=== PATIENT | male | born 1960 | race Hispanic/Latino ===

== ENCOUNTER 2025-03-13 23:41 | Emergency (ER) | payer OTHER, SELFPAY ==
[2025-03-13 23:52] VITALS: BP 181/102
--- NOTE | 2025-03-14 00:42 | ED.GENMED ---
History of Present Illness
General
Chief Complaint: Blood Pressure Problem
Source: patient and family ( at bedside)
Time Seen by Provider: 03/14/25 00:25
Nursing documentation reviewed up to this point in time: agreed with
History of Present Illness
History of Present Illness:
This is a 64-year-old gentleman with longstanding history of hypertension, maintained on metoprolol succinate 50 mg daily, lisinopril 40 mg daily. Last visit with his PCP was approximately 1 year ago.
He states his blood pressure generally runs 140s systolic.
He complains of elevated blood pressure since this morning with systolic blood pressure in the 180s. He did note mild headache this morning which has since resolved.
was concerned as they were vacationing in [place] 1 month ago and patient began to not feel well while on the airplane traveling to [place] and he proceeded to pass out. Was evaluated by flight attendants and was found to be okay. He had
similar episode a prodrome of not feeling well and then passed out while staying in the hotel room. Evaluated by physician at the hotel room and was noted to be hypotensive with blood pressure 80/60. Was given Reglan, aspirin. No recurrent
symptoms since then. They returned home February 25.
Other than metoprolol and lisinopril his only other daily medication is Lexapro 10 mg.
He denies chest pain or palpitations. No abdominal pain. Appetite has been good. No change in weight. No leg pain or swelling.
Current BP 151/98.
Past History
Past History
ED Past Medical History: HTN and Psychiatric (Anxiety)
ED Past Surgical History: None
Social History
Tobacco: Non-smoker
Alcohol: Occasional
Drug: None
Personal:
Living: with family
Employment: Employed
Family History
Family History: Other (Noncontributory)
Phy Exam
Physical Exam
Physical Exam:
GENERAL: 64-year-old gentleman appears his stated age, awake and alert, pleasant, appears in no acute distress. is accompanying.
EYE: pupils equal and reactive. anicteric
NECK: Supple, nontender, no meningismus, no significant adenopathy.
ENT: oral mucosa is moist. No rhinorrhea.
CARDIAC: Regular rate and rhythm. no murmur.
LUNGS: Clear breath sounds bilaterally, no acute respiratory distress, no wheezes/rales/rhonchi
ABDOMEN: Soft, nondistended, without focal tenderness, no r/g, no cvat. normoactive BS.
NEUROLOGICAL: Alert and oriented x3, no focal neuro deficits. Gait is marcial and steady.
SKIN: Warm and dry, normal color, skin intact. No rash.
MUSCULOSKELETAL: No C/C/E. peripheral pulses are full and equal b/l. No palpable tenderness.
PSYCH: Normal and appropriate interaction.
Course
Orders/Labs/Results
Orders:
Orders
03/13/25 23:56
EKG [Electrocardiogram (*1)] Urgent
Reason for Study: Hypertension, Benign
EKG- Treatment ONCE
03/14/25 01:00
Complete Blood Count/With Diff Urgent
Comprehensive Metabolic Panel Urgent
Urinalysis Urgent
Date Specimen was Collected: 03/14/25
Time Specimen was Collected: 00:57
Urine Microscopic Urgent
Date Specimen was Collected: 03/14/25
Time Specimen was Collected: 00:57
03/14/25 01:58
Orthostatic VS- Treatment ONCE
03/14/25 02:15
Pantoprazole [Protonix] 40 mg PO NOW STA
Abnormal Lab Results
03/14/25
01:00
RBC 4.36 L 10^6/uL
(4.70-6.10)
Hgb 10.2 L g/dL
(13.0-18.0)
Hct 32.5 L %
(39.0-52.0)
MCV 74.5 L fL
(80.0-94.0)
MCH 23.4 L pg
(27.0-31.0)
MCHC 31.4 L g/dL
(33.0-37.0)
RDW 15.8 H %
(11.5-14.5)
Plt Count 467 H 10^3/uL
(130-400)
Absolute Monos (auto) 0.9 H 10^3/uL
(0.1-0.6)
Monocytes % 11.2 H %
(1.7-9.3)
Glucose 100 H mg/dl
(70-99)
Ur Leukocyte Esterase 1+ A
(Negative)
Urine Albumin 2+ A
(Neg - Trace)
03/14/25 01:00
03/14/25 01:00
Vital Signs
Initial and Last Documented VS:
Initial Vital Signs
Temp Pulse Resp BP Pulse Ox
98.4 F 78 20 181/102 99
03/13/25 23:52 03/13/25 23:52 03/13/25 23:52 03/13/25 23:52 03/13/25 23:52
Last Documented Vital Signs
Temp Pulse Resp BP Pulse Ox
98.4 F 71 16 163/96 98
03/13/25 23:52 03/14/25 01:00 03/14/25 01:00 03/14/25 01:00 03/14/25 01:00
MDM/Problems Addressed
Differential Diagnosis Includes:
Patient with longstanding history of hypertension presents with accelerated hypertension. Reports mild headache earlier this morning which has since resolved.
Overall exam is benign.
History of syncopal episode times two 1 month ago while vacationing in [place]. Syncope preceded by prodrome of not feeling well accompanied with diaphoresis, nausea. Unclear if this was GI in nature, vasovagal episode versus bradycardia
arrhythmia. He has had no recurrent episodes but ultimately would recommend follow-up with cardiology.
Overdue for follow-up with PCP as well.
Blood pressure has improved 151/98 currently.
EKG is unremarkable and unchanged from previous 2018.
Will check labs, assess for potential end-organ damage.
No indication for imaging at this time.
*Pulse Oximetry
Patient hypoxic: no
*EKG
Interpreted by ED Provider?: Yes
Interpretation: normal
Comparison EKG: no changes (Unchanged from previous 2018)
Rate: normal
Rhythm: sinus
[place]: normal axis
Interval: normal interval
QRS Pattern: normal QRS
Ischemia: no ischemia
*[employer] Interpretation
Rate: normal
Interpretation: normal
Rhythm: sinus
*Critical Care Note
Total Time (30-74mins, 75-104mins- exclusive of procedures): Not Applicable
Update Note
Update Note:
02:15
Systolic blood pressure ranging 130-150 over 80s to 100.
Labs reveal mild anemia with hemoglobin of 10.2. Mild microcytic indices. All new compared to previous labs 2018.
Chemistries are unremarkable.
Patient reports undergoing unremarkable routine colonoscopy December of this year.
He denies abdominal pain, denies black or tarry stools, no nausea nor indigestion.
Rectal exam reveals scant brown stool within the vault that is weakly heme positive.
Concern for potential occult upper GI bleed.
Orthostatic vital signs are negative.
Will discharge to home with 30-day course of Protonix.
Recommend prompt follow-up with PCP, prompt follow-up with stuntman.
Recommend cardiology evaluation as well.
Continue current antihypertensive medications.
Strict return precautions discussed.
ED Attending Note
-
Portions of this chart may have been created with voice recognition software.� Occasional wrong word or��sound alike� substitutions may have occurred due to the inherent limitations of voice recognition software.
Discharge Plan
Departure
Patient Disposition: Home (Routine Discharge)
Date of Disposition: 03/14/25
Time of Disposition: 02:19
Patient with high blood pressure during this ER visit?: No
Condition: Good
Discharge Problem:
Accelerated essential hypertension, Hypochromic microcytic anemia, Heme positive stool
Prescriptions:
New
pantoprazole [Protonix] 40 mg tablet,delayed release (DR/EC)
40 mg PO DAILY Qty: 30 0RF
No Action
lisinopril 40 MG tablet
40 mg PO DAILY
metoprolol succinate 100 MG tablet extended release 24 hr
100 mg PO
Referrals:
Travis Pozo MD [Non-Admitting Privileges] - Call in 1-3 days for appt
UNKNOWN - PT DOES,NOT KNOW [Family Provider] -
Lio Mendoza, DO [Active] - Call in 1-3 days for appt
Activity Restrictions/Additional Instructions:
Continue current medications.
Call your family doctor this week for follow-up as well as follow-up with your stuntman.
Due to episodes of passing out last month, we recommend follow-up with cardiology as well.
Interventions
Interventions:
*Risk Screen - Suicide Last Done: 03/13/25 23:52
*General Assessment Last Done: 03/13/25 23:52
*Neglect/Abuse Screening Last Done: 03/13/25 23:52
*ED COVID-19 Vaccine History Last Done: 03/14/25 00:57
ED- Cardiac Assessment Last Done: 03/14/25 00:57
ED- Neurological Assessment Last Done: 03/14/25 00:57
ED- Pulmonary Assessment Last Done: 03/14/25 00:57
Discharge Date and Time
Print Language: [id number]
[2025-03-14 00:57] VITALS: BMI 34.2
[2025-03-14 01:00] VITALS: BP 163/96
[2025-03-14 01:07] LABS: Urine Albumin 2+ (Neg - Trace); Urine Bilirubin Negative (Negative); Urine Character Clear (Clear); Urine Color Yellow; Urine Glucose Negative (Negative); Urine Ketone Negative (Negative); Urine Leukocyte 1+ (Negative); Urine Nitrite Negative (Negative); Urine Occult Blood Negative (Negative); Urine Specific Gravity 1.025 (<1.030); Urine Urobilinogen Negative (Neg - 1+)
[2025-03-14 01:08] LABS: % Basophils 0.7 % (0-2); % Eosinophils 3.8 % (0-6); % Immature Granulocytes 0.1 % (0-0.5); % Monocytes 11.2 % (1.7-9.3); % Neutrophils 57.2 % (42.2-75.2); Absolute Basophils 0.1 10^3/uL (0-0.2); Absolute Eosinophils 0.3 10^3/uL (0-0.7); Absolute Lymphocytes 2.3 10^3/uL (1.2-3.4); Absolute Monocytes 0.9 10^3/uL (0.1-0.6); Absolute Neutrophils 4.8 10^3/uL (1.4-6.5); Hematocrit 32.5 % (39.0-52.0); Hemoglobin 10.2 g/dL (13.0-18.0); Mean Corp Hgb Conc. 31.4 g/dL (33.0-37.0); Mean Corpuscular Hgb 23.4 pg (27.0-31.0); Mean Corpuscular Volume 74.5 fL (80.0-94.0); Mean Platelet Volume 9.2 fL (7.4-10.4); Nucleated Red Blood Cells % 0 % (-); Platelet Count 467 10^3/uL (130-400); Red Blood Cell Count 4.36 10^6/uL (4.70-6.10); Red Cell Dist. Width 15.8 % (11.5-14.5); White Blood Cell Count 8.4 10^3/uL (4.8-10.8)
[2025-03-14 01:21] LABS: Urine Squamous Cell 0-2 /LPF (Few)
[2025-03-14 01:22] LABS: Urine Mucus Few; Urine Red Blood Cell None Seen /HPF (0-2); Urine White Cell 0-2 /HPF (0-5)
[2025-03-14 01:25] LABS: ALT (SGPT) 21 U/L (0-50); AST (SGOT) 25 U/L (17-59); Albumin 3.6 g/dl (3.5-5.0); Alkaline Phosphatase 86 U/L (38-126); Blood Urea Nitrogen 17 mg/dl (9-20); Calcium 9.2 mg/dl (8.4-10.2); Carbon Dioxide 25 mmol/L (22-30); Chloride 104 mmol/L (98-107); Estimated Creatinine Clearance 104 ml/min; Glucose 100 mg/dl (70-99); Potassium 4.1 mmol/L (3.5-5.1); Sodium 135 mmol/L (135-145); Total Bilirubin 0.6 mg/dl (0.2-1.3); Total Protein 6.4 g/dl (6.3-8.2); eGFR > 60.00
[2025-03-14 01:58] VITALS: BP 137/93; BP 146/100; BP 151/98; PULSE 68; PULSE 71; PULSE 72
[2025-03-14] MEDS: PROTONIX 40 MG PO (02:24)
== END 2025-03-14 02:32 | disposition home or self-care (01) ==
LOC: EMR 23:41
PROVIDERS: EMERGENCY PHYSICIAN Emergency Medicine
DX: I10 Essential (primary) hypertension (principal); D50.9 Iron deficiency anemia, unspecified; R19.5 Other fecal abnormalities
CPT/HCPCS: 99284; 80053; 81003; 81015; 85025; 93005